=== PATIENT | male | born 1960 | race American Indian/Alaskan Native ===

== ENCOUNTER 2016-05-21 12:16 | Outpatient (CLI) | payer BC ==
--- NOTE | 2016-05-21 13:58 | XRay Report ---
LEFT SHOULDER: History: Left shoulder pain. Routine views demonstrate normal bony and soft tissue structures with normal joint alignment of the shoulder. IMPRESSION: Normal study.
== END 2016-05-21 12:17 | disposition home or self-care (01) ==
LOC: SPVIMAG 12:16
DX: M25.512 Pain in left shoulder (principal)